=== PATIENT | male | born 1955 | race Caucasian/White ===

== ENCOUNTER 2022-08-02 16:04 | Observation (INO) | payer MEDICARE, BC ==
[2022-08-02 16:57] LABS: CHLORIDE,CL 100 mmol/L (98-107); SODIUM,NA 137 mmol/L (136-145)
[2022-08-02 16:58] LABS: ANION GAP 9.9 mmol/L (5-15); ESTIMATED GFR 73 mL/min (>=60)
[2022-08-02] MEDS ORDERED: HYDROmorphone 1 MG/ML Syringe IM ONE (17:08)
[2022-08-02] MEDS ORDERED: HYDROmorphone 1 MG/ML Syringe IV ONE (17:08)
[2022-08-02] MEDS ORDERED: cloNIDine 0.1 MG Tab PO ONE (17:12)
[2022-08-02] MEDS ORDERED: Ketorolac 30 MG/ML SDV IM ONE (19:20)
[2022-08-02] MEDS ORDERED: hydrALAZINE 20 MG/ML SDV IVPUSH ONE (19:20)
[2022-08-02] MEDS ORDERED: amLODIPine 10 MG Tab PO STA (21:49)
[2022-08-02] MEDS ORDERED: Ondansetron 4 MG/2 ML SDV IV PRN (23:34)
[2022-08-02] MEDS ORDERED: Ondansetron 4 MG Tab.DIS PO PRN (23:34)
[2022-08-03] MEDS ORDERED: Nitroglycerin 0.4 MG Tab.SL SL PRN (01:52)
[2022-08-03] MEDS ORDERED: Albuterol HFA 18 Gm Inhaler INH PRN (01:52)
[2022-08-03] MEDS ORDERED: Furosemide 20 MG Tab PO PRN (01:52)
[2022-08-03] MEDS ORDERED: Ergocalciferol (Vitamin D2) 1.25 MG Cap PO SCH (02:00)
[2022-08-03] MEDS: Acetaminophen/oxyCODONE 325-5 MG Tab PO PRN ×2 (02:16→10:11)
[2022-08-03] MEDS: HYDROmorphone 0.5 MG/0.5 ML Syringe IVPUSH PRN ×2 (03:27→11:12)
[2022-08-03 07:19] LABS: CHLORIDE,CL 99 mmol/L (98-107); SODIUM,NA 134 mmol/L (136-145)
[2022-08-03 07:20] LABS: ANION GAP 7.1 mmol/L (5-15); ESTIMATED GFR 81 mL/min (>=60)
[2022-08-03] MEDS ORDERED: Insulin Lispro 100 Units/ML 3 ML Vial SUBCUT SCH ×4 (07:30→18:00)
[2022-08-03] MEDS ORDERED: CLOPIDOGREL 75 MG PO SCH (09:00)
[2022-08-03] MEDS ORDERED: LISINOPRIL 2.5 MG PO SCH (09:00)
[2022-08-03] MEDS ORDERED: ISOSORBIDE MONONITRATE 120 MG PO SCH ×2 (09:00→09:15)
[2022-08-03] MEDS ORDERED: FERROUS SULFATE 325 MG PO SCH (09:00)
[2022-08-03] MEDS ORDERED: OMEPRAZOLE 20 MG PO SCH (09:00)
[2022-08-03] MEDS ORDERED: Cyanocobalamin (Vitamin B12) 1,000 MCG Tab PO SCH (09:00)
[2022-08-03] MEDS ORDERED: METOPROLOL TARTRATE 50 MG PO SCH (09:00)
[2022-08-03] MEDS ORDERED: BACLOFEN 10 MG PO SCH (09:00)
[2022-08-03] MEDS ORDERED: METFORMIN 500 MG PO SCH ×3 (09:00→10:00)
[2022-08-03] MEDS ORDERED: MULTIVITAMIN PO SCH (09:00)
[2022-08-03] MEDS ORDERED: Aspirin 81 MG Tab.EC PO SCH ×2 (09:00→09:15)
[2022-08-03] MEDS ORDERED: CYANOCOBALAMIN 500 MCG PO SCH (09:15)
[2022-08-03] MEDS ORDERED: Aspirin 81 MG Tab.EC (OWN SUPPLY) PO SCH (10:00)
[2022-08-03] MEDS ORDERED: Cyclobenzaprine 10 MG Tab PO PRN (11:53)
[2022-08-03 16:06] VITALS: BP 147/84; PULSE 76
[2022-08-03] MEDS ORDERED: GABAPENTIN 600 MG PO SCH (18:00)
[2022-08-03] MEDS ORDERED: IRON 65 MG PO SCH (18:00)
[2022-08-03] MEDS ORDERED: ROPINIROLE 0.25 MG PO SCH (19:00)
[2022-08-03] MEDS ORDERED: TAMSULOSIN 0.4 MG PO SCH (21:00)
[2022-08-03] MEDS ORDERED: NORTRIPTYLINE 25 MG PO SCH (21:00)
[2022-08-03] MEDS ORDERED: Primidone 50 MG Tab PO SCH (21:00)
[2022-08-03] MEDS ORDERED: Insulin Glarg,Human.Rec.Analog 100 Unit/ML SUBCUT SCH (21:00)
[2022-08-08] MEDS ORDERED: SEMAGLUTIDE 1 MG/0.75 ML SQ SCH (09:00)
== END 2022-08-03 15:50 | disposition home or self-care (01) ==
LOC: VM.ED 16:04 → VM.MS 22:32
PROVIDERS: ADMIT Physician Assistant Medical; ATTEND Physician Assistant Medical
DX: I16.0 Hypertensive urgency (principal); R10.2 Pelvic and perineal pain; E66.9 Obesity, unspecified; I25.119 Atherosclerotic heart disease of native coronary artery with unspecified angina pectoris; J45.909 Unspecified asthma, uncomplicated; G47.30 Sleep apnea, unspecified; E11.42 Type 2 diabetes mellitus with diabetic polyneuropathy; M16.11 Unilateral primary osteoarthritis, right hip; Z79.899 Other long term (current) drug therapy; Z79.84 Long term (current) use of oral hypoglycemic drugs; Z79.4 Long term (current) use of insulin; Z79.82 Long term (current) use of aspirin; Z98.890 Other specified postprocedural states; Z90.49 Acquired absence of other specified parts of digestive tract
CPT/HCPCS: 36415; 72192; 80048; 80053; 81001; 82550; 82947; 83735; 85025; 86140; 96372; 96374; 97161-GP; 99217; 99220; 99284-25; A9270-GY; J0360; J1170; J1815-GY; J1885; J3360

== ENCOUNTER 2023-01-14 13:37 | Emergency (ER) | payer MEDICARE, BC ==
[2023-01-14 14:01] LABS: BASOPHILS ABSOLUTE AUTO 0.1 x10^3/uL (0.0-0.2); BASOPHILS PERCENT AUTO 0.9 % (0.2-1.2); EOSINOPHILS ABSOLUTE AUTO 0.2 x10^3/uL (0.0-0.5); EOSINOPHILS PERCENT AUTO 2.8 % (0.0-4.0); HEMOGLOBIN 13.7 g/dL (14.0-18.0); IMMATURE GRAN ABSOLUTE AUTO 0.03 x10^3/uL (0.00-0.07); LYMPHOCYTES ABSOLUTE AUTO 3.1 x10^3/uL (1.0-4.8); LYMPHOCYTES PERCENT AUTO 37.8 % (25.0-50.0); MEAN CORPUSCULAR HEMOGLOBIN 29.7 pg (26.0-32.0); MEAN CORPUSCULAR HGB CONC 35.1 g/dL (32.0-36.0); MEAN CORPUSCULAR VOLUME 84.6 fL (78.0-93.0); MONOCYTES ABSOLUTE AUTO 0.5 x10^3/uL (0.0-0.8); MONOCYTES PERCENT AUTO 6.4 % (2.0-11.0); NEUTROPHILS ABSOLUTE AUTO 4.2 x10^3/uL (1.8-7.7); NEUTROPHILS PERCENT AUTO 51.7 % (50.0-80.0); PLATELET COUNT,PLT 180 x10^3/uL (130-400); RED BLOOD CELL COUNT 4.61 x10^6/uL (4.5-6.0); WHITE BLOOD CELL COUNT,WBC 8.2 x10^3/uL (4.0-10.0)
[2023-01-14 14:20] LABS: A/G RATIO 1.16; ALANINE AMINOTRANSFERASE,ALT 46 U/L (16-63); ALBUMIN 3.6 g/dL (3.4-5.0); ALKALINE PHOSPHATASE 64 U/L (46-116); ASPARTATE AMNIOTRANSFERASE,AST 33 U/L (15-37); BILIRUBIN TOTAL 0.3 mg/dL (0.2-1.0); BLOOD UREA NITROGEN,BUN 14 mg/dL (7-18); CALCIUM 8.7 mg/dL (8.5-10.1); CARBON DIOXIDE,CO2 27 mmol/L (21-32); CHLORIDE,CL 100 mmol/L (98-107); CREATINE KINASE,CK 193 U/L (39-308); GLUCOSE RANDOM 206 mg/dL (70-99); LACTATE DEHYDROGENASE,LDH 166 U/L (85-227); POTASSIUM,K 4.2 mmol/L (3.5-5.1); PROTEIN TOTAL,TP 6.7 g/dL (6.4-8.2); SODIUM,NA 137 mmol/L (136-145)
[2023-01-14 14:21] LABS: ANION GAP 14.2 mmol/L (5-15); C-REACTIVE PROTEIN < 0.2 mg/dL (<=0.9); ESTIMATED GFR 81 mL/min (>=60)
[2023-01-15 08:58] VITALS: BP 152/78; PULSE 80
== END 2023-01-14 14:40 | disposition home or self-care (01) ==
LOC: VM.ED 13:37
DX: R07.89 Other chest pain (principal); I25.10 Atherosclerotic heart disease of native coronary artery without angina pectoris; I11.0 Hypertensive heart disease with heart failure; I50.9 Heart failure, unspecified; J45.909 Unspecified asthma, uncomplicated; E11.42 Type 2 diabetes mellitus with diabetic polyneuropathy; E66.9 Obesity, unspecified; Z68.35 Body mass index [BMI] 35.0-35.9, adult; Z79.899 Other long term (current) drug therapy; Z79.4 Long term (current) use of insulin; Z79.82 Long term (current) use of aspirin; Z91.041 Radiographic dye allergy status
CPT/HCPCS: 71046; 80053; 82550; 83615; 83735; 84484; 85025; 86140; 93005; 93010; 99284; 99285

== ENCOUNTER 2023-05-06 14:56 | Inpatient (IN) | payer MEDICARE, BC ==
[2023-05-09] MEDS ORDERED: Glucose Gel 15 GM in 37.5 GM Tube PO ONE (16:06)
[2023-05-09] MEDS ORDERED: 50% Dextrose in Water 50 ML Syringe IVPUSH PRN (16:06)
[2023-05-09] MEDS ORDERED: Albuterol HFA 18 Gm Inhaler INH PRN (17:04)
[2023-05-09] MEDS ORDERED: Furosemide 20 MG Tab PO PRN (17:04)
[2023-05-09] MEDS ORDERED: Nitroglycerin 0.4 MG Tab.SL SL PRN (17:04)
[2023-05-09] MEDS: Insulin Lispro 100 Units/ML 3 ML Vial SUBCUT SCH (19:33)
[2023-05-09] MEDS: Baclofen 10 MG Tab PO SCH (21:39)
[2023-05-09] MEDS: rOPINIRole 0.5 MG Tab PO SCH (21:39)
[2023-05-09] MEDS: Multivitamin Tab PO SCH (21:39)
[2023-05-09] MEDS: Nortriptyline 25 MG Cap PO SCH (21:39)
[2023-05-09] MEDS: atorvaSTATin 10 MG Tab PO SCH (21:39)
[2023-05-09] MEDS: Gabapentin 400 MG Cap PO SCH (21:40)
[2023-05-09] MEDS: Primidone 50 MG Tab PO SCH (21:40)
[2023-05-09] MEDS: Metoprolol Tartrate 50 MG Tab PO SCH (21:51)
[2023-05-09] MEDS: Insulin Glarg,Human.Rec.Analog 100 Unit/ML 10 ML Vial SUBCUT SCH (21:52)
[2023-05-10] MEDS: Insulin Lispro 100 Units/ML 3 ML Vial SUBCUT SCH ×2 (08:21→18:31)
[2023-05-10] MEDS: Lisinopril 20 MG Tab PO SCH (08:45)
[2023-05-10] MEDS: Gabapentin 300 MG Cap PO SCH ×2 (08:45→15:38)
[2023-05-10] MEDS: Multivitamin Tab PO SCH ×2 (08:45→21:15)
[2023-05-10] MEDS: Ferrous Sulfate 325 MG Tab PO SCH (08:46)
[2023-05-10] MEDS: Clopidogrel 75 MG Tab PO SCH (08:46)
[2023-05-10] MEDS: Baclofen 10 MG Tab PO SCH ×2 (08:47→21:11)
[2023-05-10] MEDS: Metoprolol Tartrate 50 MG Tab PO SCH ×2 (08:47→21:09)
[2023-05-10] MEDS: Omeprazole 20 MG Cap.CR PO SCH (08:48)
[2023-05-10] MEDS: Finasteride 5 MG Tab PO SCH (08:48)
[2023-05-10] MEDS: Isosorbide Mononitrate 60 MG Tab.ER PO SCH (08:49)
[2023-05-10] MEDS: Cyanocobalamin (Vitamin B12) 250 MCG Tab PO SCH (08:50)
[2023-05-10] MEDS: Magnesium Oxide 400 MG Tab PO SCH (08:51)
[2023-05-10] MEDS: Aspirin 81 MG Tab.EC PO SCH (08:51)
[2023-05-10] MEDS ORDERED: Tamsulosin 0.4 MG Cap.ER PO SCH (09:00)
[2023-05-10] MEDS ORDERED: Semaglutide [Ozempic] 1 MG/0.75 ML Pen.Injctr SQ SCH (10:00)
[2023-05-10] MEDS ORDERED: Insulin Lispro 100 Units/ML 3 ML Vial SUBCUT SCH (11:00)
[2023-05-10] MEDS: metFORMIN 500 MG Tab PO SCH ×2 (17:39→17:42)
[2023-05-10] MEDS: Gabapentin 400 MG Cap PO SCH (21:09)
[2023-05-10] MEDS: Nortriptyline 25 MG Cap PO SCH (21:09)
[2023-05-10] MEDS: Primidone 50 MG Tab PO SCH (21:10)
[2023-05-10] MEDS: atorvaSTATin 10 MG Tab PO SCH (21:11)
[2023-05-10] MEDS: rOPINIRole 0.5 MG Tab PO SCH (21:12)
[2023-05-10] MEDS: Insulin Glarg,Human.Rec.Analog 100 Unit/ML 10 ML Vial SUBCUT SCH (21:26)
[2023-05-11 07:14] LABS: A/G RATIO 0.84; ALBUMIN 2.7 g/dL (3.4-5.0); BILIRUBIN DIRECT 0.14 mg/dL (0.00-0.20); BILIRUBIN INDIRECT 0.26; BILIRUBIN TOTAL 0.4 mg/dL (0.2-1.0); CALCIUM 8.3 mg/dL (8.5-10.1); CREATININE 0.8 mg/dL (0.70-1.30); EST CRCL DRUG DOSING (CG) 101.32 mL/min; PHOSPHORUS 3.8 mg/dL (2.6-4.7); PROTEIN TOTAL,TP 5.9 g/dL (6.4-8.2)
[2023-05-11 07:15] LABS: POTASSIUM,K 2.9 mmol/L (3.5-5.1)
[2023-05-11] MEDS: metFORMIN 500 MG Tab PO SCH ×2 (08:49→18:22)
[2023-05-11] MEDS: Gabapentin 300 MG Cap PO SCH ×2 (08:50→13:48)
[2023-05-11] MEDS: Cyanocobalamin (Vitamin B12) 250 MCG Tab PO SCH (08:51)
[2023-05-11] MEDS: Omeprazole 20 MG Cap.CR PO SCH (08:52)
[2023-05-11] MEDS: Baclofen 10 MG Tab PO SCH ×2 (08:52→21:43)
[2023-05-11] MEDS: Magnesium Oxide 400 MG Tab PO SCH (08:53)
[2023-05-11] MEDS: Aspirin 81 MG Tab.EC PO SCH (08:53)
[2023-05-11] MEDS: Multivitamin Tab PO SCH ×2 (08:53→21:44)
[2023-05-11] MEDS: Tamsulosin 0.4 MG Cap.ER PO SCH (08:54)
[2023-05-11] MEDS: Isosorbide Mononitrate 60 MG Tab.ER PO SCH (08:55)
[2023-05-11] MEDS: Ferrous Sulfate 325 MG Tab PO SCH (08:55)
[2023-05-11] MEDS: Finasteride 5 MG Tab PO SCH (08:55)
[2023-05-11] MEDS: Lisinopril 20 MG Tab PO SCH (08:56)
[2023-05-11] MEDS: Clopidogrel 75 MG Tab PO SCH (08:57)
[2023-05-11] MEDS: Metoprolol Tartrate 50 MG Tab PO SCH ×2 (08:58→21:44)
[2023-05-11] MEDS: Insulin Lispro 100 Units/ML 3 ML Vial SUBCUT SCH ×4 (09:01→19:10)
[2023-05-11] MEDS: Potassium Chloride 10 MEQ Tab.ER PO SCH ×2 (09:34→18:21)
[2023-05-11] MEDS: rOPINIRole 0.5 MG Tab PO SCH (21:43)
[2023-05-11] MEDS: Primidone 50 MG Tab PO SCH (21:43)
[2023-05-11] MEDS: atorvaSTATin 10 MG Tab PO SCH (21:43)
[2023-05-11] MEDS: Nortriptyline 25 MG Cap PO SCH (21:43)
[2023-05-11] MEDS: Gabapentin 400 MG Cap PO SCH (21:43)
[2023-05-11] MEDS: Insulin Glarg,Human.Rec.Analog 100 Unit/ML 10 ML Vial SUBCUT SCH (23:08)
[2023-05-12 07:11] LABS: BASOPHILS ABSOLUTE AUTO 0.1 x10^3/uL (0.0-0.2); BASOPHILS PERCENT AUTO 0.7 % (0.2-1.2); EOSINOPHILS ABSOLUTE AUTO 0.3 x10^3/uL (0.0-0.5); EOSINOPHILS PERCENT AUTO 3.3 % (0.0-4.0); HEMOGLOBIN 12.4 g/dL (14.0-18.0); IMMATURE GRAN ABSOLUTE AUTO 0.13 x10^3/uL (0.00-0.07); LYMPHOCYTES ABSOLUTE AUTO 2.3 x10^3/uL (1.0-4.8); LYMPHOCYTES PERCENT AUTO 27.6 % (25.0-50.0); MEAN CORPUSCULAR HGB CONC 34.4 g/dL (32.0-36.0); MEAN CORPUSCULAR VOLUME 84.1 fL (78.0-93.0); MONOCYTES ABSOLUTE AUTO 0.7 x10^3/uL (0.0-0.8); MONOCYTES PERCENT AUTO 8.4 % (2.0-11.0); NEUTROPHILS ABSOLUTE AUTO 4.8 x10^3/uL (1.8-7.7); NEUTROPHILS PERCENT AUTO 58.4 % (50.0-80.0); PLATELET COUNT,PLT 245 x10^3/uL (130-400); RED BLOOD CELL COUNT 4.28 x10^6/uL (4.5-6.0); WHITE BLOOD CELL COUNT,WBC 8.2 x10^3/uL (4.0-10.0)
[2023-05-12 07:26] LABS: CALCIUM 8.2 mg/dL (8.5-10.1); CREATININE 0.8 mg/dL (0.70-1.30); EST CRCL DRUG DOSING (CG) 101.32 mL/min; POTASSIUM,K 3.3 mmol/L (3.5-5.1)
[2023-05-12 07:27] LABS: ANION GAP 12.3 mmol/L (5-15)
[2023-05-12] MEDS: metFORMIN 500 MG Tab PO SCH ×2 (08:49→18:09)
[2023-05-12] MEDS: Potassium Chloride 10 MEQ Tab.ER PO SCH ×2 (08:50→09:07)
[2023-05-12] MEDS: Tamsulosin 0.4 MG Cap.ER PO SCH (08:52)
[2023-05-12] MEDS: Magnesium Oxide 400 MG Tab PO SCH (08:52)
[2023-05-12] MEDS: Baclofen 10 MG Tab PO SCH ×2 (08:54→21:12)
[2023-05-12] MEDS: Omeprazole 20 MG Cap.CR PO SCH (08:54)
[2023-05-12] MEDS: Ferrous Sulfate 325 MG Tab PO SCH (08:54)
[2023-05-12] MEDS: Metoprolol Tartrate 50 MG Tab PO SCH ×2 (08:55→21:11)
[2023-05-12] MEDS: Isosorbide Mononitrate 60 MG Tab.ER PO SCH (08:56)
[2023-05-12] MEDS: Cyanocobalamin (Vitamin B12) 250 MCG Tab PO SCH (08:56)
[2023-05-12] MEDS: Multivitamin Tab PO SCH ×2 (08:57→21:12)
[2023-05-12] MEDS: Gabapentin 300 MG Cap PO SCH ×2 (08:57→14:06)
[2023-05-12] MEDS: Aspirin 81 MG Tab.EC PO SCH (08:58)
[2023-05-12] MEDS: Clopidogrel 75 MG Tab PO SCH (08:58)
[2023-05-12] MEDS: Finasteride 5 MG Tab PO SCH (08:58)
[2023-05-12] MEDS: Lisinopril 20 MG Tab PO SCH (08:59)
[2023-05-12] MEDS: Insulin Lispro 100 Units/ML 3 ML Vial SUBCUT SCH ×3 (09:03→18:11)
[2023-05-12] MEDS: rOPINIRole 0.5 MG Tab PO SCH (21:11)
[2023-05-12] MEDS: Gabapentin 400 MG Cap PO SCH (21:11)
[2023-05-12] MEDS: Primidone 50 MG Tab PO SCH (21:12)
[2023-05-12] MEDS: Nortriptyline 25 MG Cap PO SCH (21:12)
[2023-05-12] MEDS: Insulin Glarg,Human.Rec.Analog 100 Unit/ML 10 ML Vial SUBCUT SCH (21:12)
[2023-05-12] MEDS: atorvaSTATin 10 MG Tab PO SCH (21:12)
[2023-05-13] MEDS: Gabapentin 300 MG Cap PO SCH ×2 (08:24→14:46)
[2023-05-13] MEDS: Tamsulosin 0.4 MG Cap.ER PO SCH (08:24)
[2023-05-13] MEDS: Potassium Chloride 10 MEQ Tab.ER PO SCH (08:25)
[2023-05-13] MEDS: Isosorbide Mononitrate 60 MG Tab.ER PO SCH (08:27)
[2023-05-13] MEDS: Magnesium Oxide 400 MG Tab PO SCH (08:28)
[2023-05-13] MEDS: Finasteride 5 MG Tab PO SCH (08:28)
[2023-05-13] MEDS: Multivitamin Tab PO SCH ×2 (08:28→20:05)
[2023-05-13] MEDS: Ferrous Sulfate 325 MG Tab PO SCH (08:28)
[2023-05-13] MEDS: metFORMIN 500 MG Tab PO SCH ×2 (08:28→18:48)
[2023-05-13] MEDS: Metoprolol Tartrate 50 MG Tab PO SCH ×2 (08:28→20:06)
[2023-05-13] MEDS: Aspirin 81 MG Tab.EC PO SCH (08:28)
[2023-05-13] MEDS: Lisinopril 20 MG Tab PO SCH (08:28)
[2023-05-13] MEDS: Omeprazole 20 MG Cap.CR PO SCH (08:29)
[2023-05-13] MEDS: Clopidogrel 75 MG Tab PO SCH (08:29)
[2023-05-13] MEDS: Baclofen 10 MG Tab PO SCH ×2 (08:29→20:05)
[2023-05-13] MEDS: Cyanocobalamin (Vitamin B12) 250 MCG Tab PO SCH (08:29)
[2023-05-13] MEDS: Insulin Lispro 100 Units/ML 3 ML Vial SUBCUT SCH ×3 (08:33→18:48)
[2023-05-13] MEDS: Gabapentin 400 MG Cap PO SCH (20:04)
[2023-05-13] MEDS: Primidone 50 MG Tab PO SCH (20:04)
[2023-05-13] MEDS: atorvaSTATin 10 MG Tab PO SCH (20:05)
[2023-05-13] MEDS: Nortriptyline 25 MG Cap PO SCH (20:05)
[2023-05-13] MEDS: rOPINIRole 0.5 MG Tab PO SCH (20:05)
[2023-05-13] MEDS: Insulin Glarg,Human.Rec.Analog 100 Unit/ML 10 ML Vial SUBCUT SCH (20:15)
[2023-05-14] MEDS: Potassium Chloride 10 MEQ Tab.ER PO SCH (08:27)
[2023-05-14] MEDS: Ferrous Sulfate 325 MG Tab PO SCH (08:28)
[2023-05-14] MEDS: Lisinopril 20 MG Tab PO SCH (08:28)
[2023-05-14] MEDS: Multivitamin Tab PO SCH ×2 (08:28→20:55)
[2023-05-14] MEDS: Clopidogrel 75 MG Tab PO SCH (08:28)
[2023-05-14] MEDS: Baclofen 10 MG Tab PO SCH ×2 (08:29→20:38)
[2023-05-14] MEDS: Metoprolol Tartrate 50 MG Tab PO SCH ×2 (08:29→20:36)
[2023-05-14] MEDS: Isosorbide Mononitrate 60 MG Tab.ER PO SCH (08:29)
[2023-05-14] MEDS: Finasteride 5 MG Tab PO SCH (08:29)
[2023-05-14] MEDS: Cyanocobalamin (Vitamin B12) 250 MCG Tab PO SCH (08:29)
[2023-05-14] MEDS: Magnesium Oxide 400 MG Tab PO SCH (08:30)
[2023-05-14] MEDS: Omeprazole 20 MG Cap.CR PO SCH (08:30)
[2023-05-14] MEDS: Tamsulosin 0.4 MG Cap.ER PO SCH (08:30)
[2023-05-14] MEDS: metFORMIN 500 MG Tab PO SCH ×2 (08:30→18:22)
[2023-05-14] MEDS: Aspirin 81 MG Tab.EC PO SCH (08:30)
[2023-05-14] MEDS: Gabapentin 300 MG Cap PO SCH ×2 (08:30→14:57)
[2023-05-14] MEDS: Insulin Lispro 100 Units/ML 3 ML Vial SUBCUT SCH ×3 (08:31→18:22)
[2023-05-14] MEDS: rOPINIRole 0.5 MG Tab PO SCH (20:36)
[2023-05-14] MEDS: Gabapentin 400 MG Cap PO SCH (20:36)
[2023-05-14] MEDS: Primidone 50 MG Tab PO SCH (20:36)
[2023-05-14] MEDS: Nortriptyline 25 MG Cap PO SCH (20:37)
[2023-05-14] MEDS: atorvaSTATin 10 MG Tab PO SCH (20:38)
[2023-05-14] MEDS: Insulin Glarg,Human.Rec.Analog 100 Unit/ML 10 ML Vial SUBCUT SCH (20:55)
[2023-05-15] MEDS: Potassium Chloride 10 MEQ Tab.ER PO SCH (08:23)
[2023-05-15] MEDS: Baclofen 10 MG Tab PO SCH ×2 (08:23→21:49)
[2023-05-15] MEDS: Aspirin 81 MG Tab.EC PO SCH (08:23)
[2023-05-15] MEDS: Finasteride 5 MG Tab PO SCH (08:23)
[2023-05-15] MEDS: Isosorbide Mononitrate 60 MG Tab.ER PO SCH (08:24)
[2023-05-15] MEDS: Cyanocobalamin (Vitamin B12) 250 MCG Tab PO SCH (08:24)
[2023-05-15] MEDS: Magnesium Oxide 400 MG Tab PO SCH (08:24)
[2023-05-15] MEDS: Clopidogrel 75 MG Tab PO SCH (08:24)
[2023-05-15] MEDS: metFORMIN 500 MG Tab PO SCH ×2 (08:24→18:10)
[2023-05-15] MEDS: Multivitamin Tab PO SCH ×2 (08:25→21:49)
[2023-05-15] MEDS: Omeprazole 20 MG Cap.CR PO SCH (08:25)
[2023-05-15] MEDS: Ferrous Sulfate 325 MG Tab PO SCH (08:25)
[2023-05-15] MEDS: Tamsulosin 0.4 MG Cap.ER PO SCH (08:25)
[2023-05-15] MEDS: Gabapentin 300 MG Cap PO SCH ×2 (08:25→13:23)
[2023-05-15] MEDS: Insulin Lispro 100 Units/ML 3 ML Vial SUBCUT SCH ×3 (08:26→18:10)
[2023-05-15] MEDS: Metoprolol Tartrate 50 MG Tab PO SCH ×2 (08:29→21:56)
[2023-05-15] MEDS: Lisinopril 20 MG Tab PO SCH (08:29)
[2023-05-15] MEDS: rOPINIRole 0.5 MG Tab PO SCH (21:47)
[2023-05-15] MEDS: Primidone 50 MG Tab PO SCH (21:50)
[2023-05-15] MEDS: atorvaSTATin 10 MG Tab PO SCH (21:50)
[2023-05-15] MEDS: Gabapentin 400 MG Cap PO SCH (21:56)
[2023-05-15] MEDS: Nortriptyline 25 MG Cap PO SCH (21:57)
[2023-05-15] MEDS: Insulin Glarg,Human.Rec.Analog 100 Unit/ML 10 ML Vial SUBCUT SCH (21:59)
[2023-05-16 07:04] LABS: BASOPHILS ABSOLUTE AUTO 0.1 x10^3/uL (0.0-0.2); BASOPHILS PERCENT AUTO 1.3 % (0.2-1.2); EOSINOPHILS ABSOLUTE AUTO 0.3 x10^3/uL (0.0-0.5); EOSINOPHILS PERCENT AUTO 4.2 % (0.0-4.0); IMMATURE GRAN ABSOLUTE AUTO 0.05 x10^3/uL (0.00-0.07); LYMPHOCYTES ABSOLUTE AUTO 2.3 x10^3/uL (1.0-4.8); LYMPHOCYTES PERCENT AUTO 29.4 % (25.0-50.0); MEAN CORPUSCULAR HGB CONC 35.1 g/dL (32.0-36.0); MEAN CORPUSCULAR VOLUME 85.3 fL (78.0-93.0); MONOCYTES ABSOLUTE AUTO 0.6 x10^3/uL (0.0-0.8); MONOCYTES PERCENT AUTO 7.4 % (2.0-11.0); NEUTROPHILS ABSOLUTE AUTO 4.4 x10^3/uL (1.8-7.7); PLATELET COUNT,PLT 205 x10^3/uL (130-400); RED BLOOD CELL COUNT 4.34 x10^6/uL (4.5-6.0); WHITE BLOOD CELL COUNT,WBC 7.7 x10^3/uL (4.0-10.0)
[2023-05-16 07:24] LABS: ALBUMIN 2.8 g/dL (3.4-5.0); CALCIUM 8.4 mg/dL (8.5-10.1); CREATININE 0.9 mg/dL (0.70-1.30); EST CRCL DRUG DOSING (CG) 90.06 mL/min; PHOSPHORUS 3.3 mg/dL (2.6-4.7); POTASSIUM,K 4.2 mmol/L (3.5-5.1)
[2023-05-16] MEDS: Insulin Lispro 100 Units/ML 3 ML Vial SUBCUT SCH ×3 (08:07→17:41)
[2023-05-16] MEDS: metFORMIN 500 MG Tab PO SCH ×2 (08:08→17:40)
[2023-05-16] MEDS: Omeprazole 20 MG Cap.CR PO SCH (08:09)
[2023-05-16] MEDS: Baclofen 10 MG Tab PO SCH ×2 (08:09→20:59)
[2023-05-16] MEDS: Tamsulosin 0.4 MG Cap.ER PO SCH (08:09)
[2023-05-16] MEDS: Isosorbide Mononitrate 60 MG Tab.ER PO SCH (08:09)
[2023-05-16] MEDS: Gabapentin 300 MG Cap PO SCH ×2 (08:10→14:21)
[2023-05-16] MEDS: Aspirin 81 MG Tab.EC PO SCH (08:10)
[2023-05-16] MEDS: Multivitamin Tab PO SCH ×2 (08:10→20:59)
[2023-05-16] MEDS: Metoprolol Tartrate 50 MG Tab PO SCH ×2 (08:10→21:00)
[2023-05-16] MEDS: Potassium Chloride 10 MEQ Tab.ER PO SCH (08:10)
[2023-05-16] MEDS: Lisinopril 20 MG Tab PO SCH (08:10)
[2023-05-16] MEDS: Finasteride 5 MG Tab PO SCH (08:11)
[2023-05-16] MEDS: Ferrous Sulfate 325 MG Tab PO SCH (08:11)
[2023-05-16] MEDS: Clopidogrel 75 MG Tab PO SCH (08:11)
[2023-05-16] MEDS: Magnesium Oxide 400 MG Tab PO SCH (08:11)
[2023-05-16] MEDS: Cyanocobalamin (Vitamin B12) 250 MCG Tab PO SCH (08:11)
[2023-05-16] MEDS ORDERED: Insulin Glarg,Human.Rec.Analog 100 Unit/ML 10 ML Vial SUBCUT SCH (15:00)
[2023-05-16] MEDS: rOPINIRole 0.5 MG Tab PO SCH (20:58)
[2023-05-16] MEDS: Gabapentin 400 MG Cap PO SCH (20:58)
[2023-05-16] MEDS: Nortriptyline 25 MG Cap PO SCH (20:58)
[2023-05-16] MEDS: atorvaSTATin 10 MG Tab PO SCH (20:59)
[2023-05-16] MEDS: Primidone 50 MG Tab PO SCH (20:59)
[2023-05-16] MEDS: Insulin Glarg,Human.Rec.Analog 100 Unit/ML 10 ML Vial SUBCUT SCH (21:01)
[2023-05-17] MEDS: Gabapentin 300 MG Cap PO SCH ×2 (09:12→14:15)
[2023-05-17] MEDS: Isosorbide Mononitrate 60 MG Tab.ER PO SCH (09:12)
[2023-05-17] MEDS: Omeprazole 20 MG Cap.CR PO SCH (09:12)
[2023-05-17] MEDS: Multivitamin Tab PO SCH ×2 (09:13→21:46)
[2023-05-17] MEDS: Tamsulosin 0.4 MG Cap.ER PO SCH (09:13)
[2023-05-17] MEDS: Clopidogrel 75 MG Tab PO SCH (09:13)
[2023-05-17] MEDS: Ferrous Sulfate 325 MG Tab PO SCH (09:14)
[2023-05-17] MEDS: Cyanocobalamin (Vitamin B12) 250 MCG Tab PO SCH (09:14)
[2023-05-17] MEDS: Lisinopril 20 MG Tab PO SCH (09:14)
[2023-05-17] MEDS: Aspirin 81 MG Tab.EC PO SCH (09:14)
[2023-05-17] MEDS: Finasteride 5 MG Tab PO SCH (09:15)
[2023-05-17] MEDS: Potassium Chloride 10 MEQ Tab.ER PO SCH (09:15)
[2023-05-17] MEDS: metFORMIN 500 MG Tab PO SCH ×2 (09:15→18:00)
[2023-05-17] MEDS: Metoprolol Tartrate 50 MG Tab PO SCH ×2 (09:16→21:47)
[2023-05-17] MEDS: Baclofen 10 MG Tab PO SCH ×2 (09:16→21:47)
[2023-05-17] MEDS: Magnesium Oxide 400 MG Tab PO SCH (09:17)
[2023-05-17] MEDS: Insulin Lispro 100 Units/ML 3 ML Vial SUBCUT SCH ×3 (09:36→18:01)
[2023-05-17] MEDS: Primidone 50 MG Tab PO SCH (21:46)
[2023-05-17] MEDS: Gabapentin 400 MG Cap PO SCH (21:46)
[2023-05-17] MEDS: atorvaSTATin 10 MG Tab PO SCH (21:46)
[2023-05-17] MEDS: rOPINIRole 0.5 MG Tab PO SCH (21:47)
[2023-05-17] MEDS: Nortriptyline 25 MG Cap PO SCH (21:47)
[2023-05-17] MEDS: Insulin Glarg,Human.Rec.Analog 100 Unit/ML 10 ML Vial SUBCUT SCH (21:49)
[2023-05-18] MEDS: Insulin Lispro 100 Units/ML 3 ML Vial SUBCUT SCH ×3 (09:46→17:56)
[2023-05-18] MEDS: Isosorbide Mononitrate 60 MG Tab.ER PO SCH (09:47)
[2023-05-18] MEDS: Aspirin 81 MG Tab.EC PO SCH (09:48)
[2023-05-18] MEDS: Gabapentin 300 MG Cap PO SCH ×2 (09:48→13:31)
[2023-05-18] MEDS: Magnesium Oxide 400 MG Tab PO SCH (09:49)
[2023-05-18] MEDS: Ferrous Sulfate 325 MG Tab PO SCH (09:49)
[2023-05-18] MEDS: Omeprazole 20 MG Cap.CR PO SCH (09:49)
[2023-05-18] MEDS: Potassium Chloride 10 MEQ Tab.ER PO SCH (09:49)
[2023-05-18] MEDS: metFORMIN 500 MG Tab PO SCH ×2 (09:50→17:56)
[2023-05-18] MEDS: Multivitamin Tab PO SCH ×2 (09:50→22:00)
[2023-05-18] MEDS: Cyanocobalamin (Vitamin B12) 250 MCG Tab PO SCH (09:51)
[2023-05-18] MEDS: Lisinopril 20 MG Tab PO SCH (09:52)
[2023-05-18] MEDS: Baclofen 10 MG Tab PO SCH ×2 (09:52→22:00)
[2023-05-18] MEDS: Tamsulosin 0.4 MG Cap.ER PO SCH (09:52)
[2023-05-18] MEDS: Clopidogrel 75 MG Tab PO SCH (09:53)
[2023-05-18] MEDS: Metoprolol Tartrate 50 MG Tab PO SCH ×2 (09:54→22:02)
[2023-05-18] MEDS: Finasteride 5 MG Tab PO SCH (09:55)
[2023-05-18] MEDS: Primidone 50 MG Tab PO SCH (21:58)
[2023-05-18] MEDS: atorvaSTATin 10 MG Tab PO SCH (21:59)
[2023-05-18] MEDS: rOPINIRole 0.5 MG Tab PO SCH (21:59)
[2023-05-18] MEDS: Gabapentin 400 MG Cap PO SCH (22:00)
[2023-05-18] MEDS: Insulin Glarg,Human.Rec.Analog 100 Unit/ML 10 ML Vial SUBCUT SCH (22:01)
[2023-05-18] MEDS: Nortriptyline 25 MG Cap PO SCH (22:12)
[2023-05-19] MEDS: metFORMIN 500 MG Tab PO SCH ×2 (09:00→17:51)
[2023-05-19] MEDS: Insulin Lispro 100 Units/ML 3 ML Vial SUBCUT SCH ×3 (09:26→17:49)
[2023-05-19] MEDS: Clopidogrel 75 MG Tab PO SCH (09:27)
[2023-05-19] MEDS: Isosorbide Mononitrate 60 MG Tab.ER PO SCH (09:27)
[2023-05-19] MEDS: Potassium Chloride 10 MEQ Tab.ER PO SCH (09:28)
[2023-05-19] MEDS: Cyanocobalamin (Vitamin B12) 250 MCG Tab PO SCH (09:28)
[2023-05-19] MEDS: Gabapentin 300 MG Cap PO SCH ×2 (09:29→14:38)
[2023-05-19] MEDS: Omeprazole 20 MG Cap.CR PO SCH (09:29)
[2023-05-19] MEDS: Ferrous Sulfate 325 MG Tab PO SCH (09:30)
[2023-05-19] MEDS: Multivitamin Tab PO SCH ×2 (09:30→21:32)
[2023-05-19] MEDS: Metoprolol Tartrate 50 MG Tab PO SCH ×2 (09:31→21:31)
[2023-05-19] MEDS: Magnesium Oxide 400 MG Tab PO SCH (09:31)
[2023-05-19] MEDS: Lisinopril 20 MG Tab PO SCH (09:32)
[2023-05-19] MEDS: Tamsulosin 0.4 MG Cap.ER PO SCH (09:32)
[2023-05-19] MEDS: Finasteride 5 MG Tab PO SCH (09:33)
[2023-05-19] MEDS: Baclofen 10 MG Tab PO SCH ×2 (09:33→21:33)
[2023-05-19] MEDS: Aspirin 81 MG Tab.EC PO SCH (09:34)
[2023-05-19] MEDS: Gabapentin 400 MG Cap PO SCH (21:31)
[2023-05-19] MEDS: Primidone 50 MG Tab PO SCH (21:31)
[2023-05-19] MEDS: rOPINIRole 0.5 MG Tab PO SCH (21:32)
[2023-05-19] MEDS: atorvaSTATin 10 MG Tab PO SCH (21:32)
[2023-05-19] MEDS: Nortriptyline 25 MG Cap PO SCH (21:32)
[2023-05-19] MEDS: Insulin Glarg,Human.Rec.Analog 100 Unit/ML 10 ML Vial SUBCUT SCH (21:41)
[2023-05-20] MEDS: Cyanocobalamin (Vitamin B12) 250 MCG Tab PO SCH (08:14)
[2023-05-20] MEDS: Aspirin 81 MG Tab.EC PO SCH (08:15)
[2023-05-20] MEDS: Isosorbide Mononitrate 60 MG Tab.ER PO SCH (08:15)
[2023-05-20] MEDS: Potassium Chloride 10 MEQ Tab.ER PO SCH (08:16)
[2023-05-20] MEDS: Magnesium Oxide 400 MG Tab PO SCH (08:16)
[2023-05-20] MEDS: Gabapentin 300 MG Cap PO SCH ×2 (08:16→13:54)
[2023-05-20] MEDS: Omeprazole 20 MG Cap.CR PO SCH (08:16)
[2023-05-20] MEDS: Finasteride 5 MG Tab PO SCH (08:16)
[2023-05-20] MEDS: Clopidogrel 75 MG Tab PO SCH (08:16)
[2023-05-20] MEDS: Multivitamin Tab PO SCH ×2 (08:16→20:14)
[2023-05-20] MEDS: Tamsulosin 0.4 MG Cap.ER PO SCH (08:16)
[2023-05-20] MEDS: Baclofen 10 MG Tab PO SCH ×2 (08:16→20:14)
[2023-05-20] MEDS: Ferrous Sulfate 325 MG Tab PO SCH (08:16)
[2023-05-20] MEDS: Insulin Lispro 100 Units/ML 3 ML Vial SUBCUT SCH ×3 (08:17→18:55)
[2023-05-20] MEDS: metFORMIN 500 MG Tab PO SCH ×2 (08:20→18:54)
[2023-05-20] MEDS: Lisinopril 20 MG Tab PO SCH (08:21)
[2023-05-20] MEDS: Metoprolol Tartrate 50 MG Tab PO SCH ×2 (08:21→20:13)
[2023-05-20] MEDS: Gabapentin 400 MG Cap PO SCH (20:10)
[2023-05-20] MEDS: Primidone 50 MG Tab PO SCH (20:11)
[2023-05-20] MEDS: rOPINIRole 0.5 MG Tab PO SCH (20:13)
[2023-05-20] MEDS: atorvaSTATin 10 MG Tab PO SCH (20:13)
[2023-05-20] MEDS: Nortriptyline 25 MG Cap PO SCH (20:14)
[2023-05-20] MEDS: Insulin Glarg,Human.Rec.Analog 100 Unit/ML 10 ML Vial SUBCUT SCH (20:16)
[2023-05-21] MEDS: Magnesium Oxide 400 MG Tab PO SCH (08:40)
[2023-05-21] MEDS: Baclofen 10 MG Tab PO SCH ×2 (08:40→20:50)
[2023-05-21] MEDS: Isosorbide Mononitrate 60 MG Tab.ER PO SCH (08:40)
[2023-05-21] MEDS: Aspirin 81 MG Tab.EC PO SCH (08:40)
[2023-05-21] MEDS: Ferrous Sulfate 325 MG Tab PO SCH (08:41)
[2023-05-21] MEDS: Cyanocobalamin (Vitamin B12) 250 MCG Tab PO SCH (08:41)
[2023-05-21] MEDS: Metoprolol Tartrate 50 MG Tab PO SCH ×2 (08:41→20:50)
[2023-05-21] MEDS: Tamsulosin 0.4 MG Cap.ER PO SCH (08:41)
[2023-05-21] MEDS: Potassium Chloride 10 MEQ Tab.ER PO SCH (08:41)
[2023-05-21] MEDS: Gabapentin 300 MG Cap PO SCH ×2 (08:41→13:36)
[2023-05-21] MEDS: Omeprazole 20 MG Cap.CR PO SCH (08:42)
[2023-05-21] MEDS: Clopidogrel 75 MG Tab PO SCH (08:42)
[2023-05-21] MEDS: Multivitamin Tab PO SCH ×2 (08:42→20:51)
[2023-05-21] MEDS: Lisinopril 20 MG Tab PO SCH (08:42)
[2023-05-21] MEDS: Finasteride 5 MG Tab PO SCH (08:42)
[2023-05-21] MEDS: metFORMIN 500 MG Tab PO SCH ×2 (08:43→18:52)
[2023-05-21] MEDS: Insulin Lispro 100 Units/ML 3 ML Vial SUBCUT SCH ×3 (08:44→18:53)
[2023-05-21] MEDS: Gabapentin 400 MG Cap PO SCH (20:48)
[2023-05-21] MEDS: atorvaSTATin 10 MG Tab PO SCH (20:48)
[2023-05-21] MEDS: Nortriptyline 25 MG Cap PO SCH (20:48)
[2023-05-21] MEDS: rOPINIRole 0.5 MG Tab PO SCH (20:49)
[2023-05-21] MEDS: Primidone 50 MG Tab PO SCH (20:49)
[2023-05-21] MEDS: Insulin Glarg,Human.Rec.Analog 100 Unit/ML 10 ML Vial SUBCUT SCH (20:52)
[2023-05-22] MEDS: metFORMIN 500 MG Tab PO SCH ×2 (08:01→18:12)
[2023-05-22] MEDS: Insulin Lispro 100 Units/ML 3 ML Vial SUBCUT SCH ×3 (08:03→18:11)
[2023-05-22] MEDS: Multivitamin Tab PO SCH ×2 (08:58→21:48)
[2023-05-22] MEDS: Potassium Chloride 10 MEQ Tab.ER PO SCH (08:58)
[2023-05-22] MEDS: Cyanocobalamin (Vitamin B12) 250 MCG Tab PO SCH (08:58)
[2023-05-22] MEDS: Omeprazole 20 MG Cap.CR PO SCH (08:58)
[2023-05-22] MEDS: Clopidogrel 75 MG Tab PO SCH (08:58)
[2023-05-22] MEDS: Ferrous Sulfate 325 MG Tab PO SCH (08:58)
[2023-05-22] MEDS: Tamsulosin 0.4 MG Cap.ER PO SCH (08:59)
[2023-05-22] MEDS: Finasteride 5 MG Tab PO SCH (08:59)
[2023-05-22] MEDS: Magnesium Oxide 400 MG Tab PO SCH (08:59)
[2023-05-22] MEDS: Gabapentin 300 MG Cap PO SCH ×2 (08:59→14:11)
[2023-05-22] MEDS: Aspirin 81 MG Tab.EC PO SCH (08:59)
[2023-05-22] MEDS: Baclofen 10 MG Tab PO SCH ×2 (08:59→21:48)
[2023-05-22] MEDS: Isosorbide Mononitrate 60 MG Tab.ER PO SCH (08:59)
[2023-05-22] MEDS: Metoprolol Tartrate 50 MG Tab PO SCH ×2 (09:00→21:48)
[2023-05-22] MEDS: Lisinopril 20 MG Tab PO SCH (09:00)
[2023-05-22] MEDS: Primidone 50 MG Tab PO SCH (21:47)
[2023-05-22] MEDS: rOPINIRole 0.5 MG Tab PO SCH (21:48)
[2023-05-22] MEDS: Nortriptyline 25 MG Cap PO SCH (21:48)
[2023-05-22] MEDS: Gabapentin 400 MG Cap PO SCH (21:48)
[2023-05-22] MEDS: atorvaSTATin 10 MG Tab PO SCH (21:48)
[2023-05-22] MEDS: Insulin Glarg,Human.Rec.Analog 100 Unit/ML 10 ML Vial SUBCUT SCH (22:11)
[2023-05-23 06:53] LABS: BASOPHILS ABSOLUTE AUTO 0.1 x10^3/uL (0.0-0.2); BASOPHILS PERCENT AUTO 0.8 % (0.2-1.2); EOSINOPHILS ABSOLUTE AUTO 0.6 x10^3/uL (0.0-0.5); HEMATOCRIT 38.8 % (40.0-52.0); IMMATURE GRAN ABSOLUTE AUTO 0.06 x10^3/uL (0.00-0.07); LYMPHOCYTES ABSOLUTE AUTO 2.7 x10^3/uL (1.0-4.8); LYMPHOCYTES PERCENT AUTO 35.9 % (25.0-50.0); MEAN CORPUSCULAR HEMOGLOBIN 29.2 pg (26.0-32.0); MEAN CORPUSCULAR HGB CONC 33.5 g/dL (32.0-36.0); MEAN CORPUSCULAR VOLUME 87.2 fL (78.0-93.0); MONOCYTES ABSOLUTE AUTO 0.7 x10^3/uL (0.0-0.8); MONOCYTES PERCENT AUTO 8.7 % (2.0-11.0); NEUTROPHILS ABSOLUTE AUTO 3.5 x10^3/uL (1.8-7.7); NEUTROPHILS PERCENT AUTO 45.8 % (50.0-80.0); PLATELET COUNT,PLT 162 x10^3/uL (130-400); RED BLOOD CELL COUNT 4.45 x10^6/uL (4.5-6.0); WHITE BLOOD CELL COUNT,WBC 7.6 x10^3/uL (4.0-10.0)
[2023-05-23 07:26] LABS: A/G RATIO 1.07; ALBUMIN 3.2 g/dL (3.4-5.0); BILIRUBIN TOTAL 0.6 mg/dL (0.2-1.0); CALCIUM 8.7 mg/dL (8.5-10.1); EST CRCL DRUG DOSING (CG) 81.06 mL/min; PROTEIN TOTAL,TP 6.2 g/dL (6.4-8.2)
[2023-05-23] MEDS: metFORMIN 500 MG Tab PO SCH ×2 (08:40→18:17)
[2023-05-23] MEDS: Ferrous Sulfate 325 MG Tab PO SCH (08:40)
[2023-05-23] MEDS: Tamsulosin 0.4 MG Cap.ER PO SCH (08:40)
[2023-05-23] MEDS: Cyanocobalamin (Vitamin B12) 250 MCG Tab PO SCH (08:40)
[2023-05-23] MEDS: Baclofen 10 MG Tab PO SCH ×2 (08:40→20:59)
[2023-05-23] MEDS: Lisinopril 20 MG Tab PO SCH (08:40)
[2023-05-23] MEDS: Potassium Chloride 10 MEQ Tab.ER PO SCH (08:40)
[2023-05-23] MEDS: Omeprazole 20 MG Cap.CR PO SCH (08:40)
[2023-05-23] MEDS: Clopidogrel 75 MG Tab PO SCH (08:40)
[2023-05-23] MEDS: Multivitamin Tab PO SCH ×2 (08:40→21:00)
[2023-05-23] MEDS: Magnesium Oxide 400 MG Tab PO SCH (08:41)
[2023-05-23] MEDS: Finasteride 5 MG Tab PO SCH (08:41)
[2023-05-23] MEDS: Metoprolol Tartrate 50 MG Tab PO SCH ×2 (08:41→21:00)
[2023-05-23] MEDS: Gabapentin 300 MG Cap PO SCH ×2 (08:41→14:45)
[2023-05-23] MEDS: Aspirin 81 MG Tab.EC PO SCH (08:41)
[2023-05-23] MEDS: Isosorbide Mononitrate 60 MG Tab.ER PO SCH (08:41)
[2023-05-23] MEDS: Insulin Lispro 100 Units/ML 3 ML Vial SUBCUT SCH ×3 (08:45→18:17)
[2023-05-23] MEDS: atorvaSTATin 10 MG Tab PO SCH (21:00)
[2023-05-23] MEDS: rOPINIRole 0.5 MG Tab PO SCH (21:00)
[2023-05-23] MEDS: Gabapentin 400 MG Cap PO SCH (21:00)
[2023-05-23] MEDS: Primidone 50 MG Tab PO SCH (21:00)
[2023-05-23] MEDS: Nortriptyline 25 MG Cap PO SCH (21:00)
[2023-05-23] MEDS: Insulin Glarg,Human.Rec.Analog 100 Unit/ML 10 ML Vial SUBCUT SCH (21:01)
[2023-05-24] MEDS: Tamsulosin 0.4 MG Cap.ER PO SCH (08:07)
[2023-05-24] MEDS: Clopidogrel 75 MG Tab PO SCH (08:07)
[2023-05-24] MEDS: Magnesium Oxide 400 MG Tab PO SCH (08:08)
[2023-05-24] MEDS: Gabapentin 300 MG Cap PO SCH ×2 (08:08→14:28)
[2023-05-24] MEDS: Ferrous Sulfate 325 MG Tab PO SCH (08:08)
[2023-05-24] MEDS: Finasteride 5 MG Tab PO SCH (08:08)
[2023-05-24] MEDS: Aspirin 81 MG Tab.EC PO SCH (08:08)
[2023-05-24] MEDS: Potassium Chloride 10 MEQ Tab.ER PO SCH (08:08)
[2023-05-24] MEDS: Isosorbide Mononitrate 60 MG Tab.ER PO SCH (08:08)
[2023-05-24] MEDS: Omeprazole 20 MG Cap.CR PO SCH (08:08)
[2023-05-24] MEDS: Cyanocobalamin (Vitamin B12) 250 MCG Tab PO SCH (08:08)
[2023-05-24] MEDS: metFORMIN 500 MG Tab PO SCH ×2 (08:08→19:34)
[2023-05-24] MEDS: Baclofen 10 MG Tab PO SCH ×2 (08:08→21:16)
[2023-05-24] MEDS: Multivitamin Tab PO SCH ×2 (08:08→21:16)
[2023-05-24] MEDS: Metoprolol Tartrate 50 MG Tab PO SCH ×2 (08:09→21:19)
[2023-05-24] MEDS: Lisinopril 20 MG Tab PO SCH (08:09)
[2023-05-24] MEDS: Insulin Lispro 100 Units/ML 3 ML Vial SUBCUT SCH ×3 (08:15→20:14)
[2023-05-24] MEDS: Gabapentin 400 MG Cap PO SCH (21:12)
[2023-05-24] MEDS: Primidone 50 MG Tab PO SCH (21:13)
[2023-05-24] MEDS: Nortriptyline 25 MG Cap PO SCH (21:15)
[2023-05-24] MEDS: atorvaSTATin 10 MG Tab PO SCH (21:15)
[2023-05-24] MEDS: rOPINIRole 0.5 MG Tab PO SCH (21:16)
[2023-05-24] MEDS: Insulin Glarg,Human.Rec.Analog 100 Unit/ML 10 ML Vial SUBCUT SCH (21:19)
[2023-05-25] MEDS: Isosorbide Mononitrate 60 MG Tab.ER PO SCH (08:08)
[2023-05-25] MEDS: Magnesium Oxide 400 MG Tab PO SCH (08:08)
[2023-05-25] MEDS: Multivitamin Tab PO SCH ×2 (08:08→20:59)
[2023-05-25] MEDS: metFORMIN 500 MG Tab PO SCH ×2 (08:09→17:51)
[2023-05-25] MEDS: Gabapentin 300 MG Cap PO SCH ×2 (08:09→14:44)
[2023-05-25] MEDS: Potassium Chloride 10 MEQ Tab.ER PO SCH (08:10)
[2023-05-25] MEDS: Aspirin 81 MG Tab.EC PO SCH (08:11)
[2023-05-25] MEDS: Omeprazole 20 MG Cap.CR PO SCH (08:11)
[2023-05-25] MEDS: Cyanocobalamin (Vitamin B12) 250 MCG Tab PO SCH (08:12)
[2023-05-25] MEDS: Tamsulosin 0.4 MG Cap.ER PO SCH (08:13)
[2023-05-25] MEDS: Ferrous Sulfate 325 MG Tab PO SCH (08:13)
[2023-05-25] MEDS: Baclofen 10 MG Tab PO SCH ×2 (08:13→21:00)
[2023-05-25] MEDS: Finasteride 5 MG Tab PO SCH (08:14)
[2023-05-25] MEDS: Clopidogrel 75 MG Tab PO SCH (08:15)
[2023-05-25] MEDS: Lisinopril 20 MG Tab PO SCH (08:15)
[2023-05-25] MEDS: Metoprolol Tartrate 50 MG Tab PO SCH ×2 (08:16→21:04)
[2023-05-25] MEDS: Insulin Lispro 100 Units/ML 3 ML Vial SUBCUT SCH ×3 (08:18→17:52)
[2023-05-25] MEDS: Insulin Glarg,Human.Rec.Analog 100 Unit/ML 10 ML Vial SUBCUT SCH (20:58)
[2023-05-25] MEDS: atorvaSTATin 10 MG Tab PO SCH (20:59)
[2023-05-25] MEDS: Primidone 50 MG Tab PO SCH (20:59)
[2023-05-25] MEDS: Nortriptyline 25 MG Cap PO SCH (20:59)
[2023-05-25] MEDS: rOPINIRole 0.5 MG Tab PO SCH (20:59)
[2023-05-25] MEDS: Gabapentin 400 MG Cap PO SCH (20:59)
[2023-05-26] MEDS: Baclofen 10 MG Tab PO SCH ×2 (08:27→20:48)
[2023-05-26] MEDS: metFORMIN 500 MG Tab PO SCH ×2 (08:27→19:36)
[2023-05-26] MEDS: Ferrous Sulfate 325 MG Tab PO SCH (08:28)
[2023-05-26] MEDS: Aspirin 81 MG Tab.EC PO SCH (08:29)
[2023-05-26] MEDS: Cyanocobalamin (Vitamin B12) 250 MCG Tab PO SCH (08:29)
[2023-05-26] MEDS: Tamsulosin 0.4 MG Cap.ER PO SCH (08:29)
[2023-05-26] MEDS: Potassium Chloride 10 MEQ Tab.ER PO SCH (08:29)
[2023-05-26] MEDS: Magnesium Oxide 400 MG Tab PO SCH (08:29)
[2023-05-26] MEDS: Finasteride 5 MG Tab PO SCH (08:30)
[2023-05-26] MEDS: Lisinopril 20 MG Tab PO SCH (08:30)
[2023-05-26] MEDS: Metoprolol Tartrate 50 MG Tab PO SCH ×2 (08:30→20:47)
[2023-05-26] MEDS: Multivitamin Tab PO SCH ×2 (08:31→20:47)
[2023-05-26] MEDS: Clopidogrel 75 MG Tab PO SCH (08:31)
[2023-05-26] MEDS: Gabapentin 300 MG Cap PO SCH ×2 (08:35→14:36)
[2023-05-26] MEDS: Omeprazole 20 MG Cap.CR PO SCH (08:35)
[2023-05-26] MEDS: Insulin Lispro 100 Units/ML 3 ML Vial SUBCUT SCH ×3 (08:36→18:27)
[2023-05-26] MEDS: Isosorbide Mononitrate 60 MG Tab.ER PO SCH (12:06)
[2023-05-26] MEDS: Nortriptyline 25 MG Cap PO SCH (20:47)
[2023-05-26] MEDS: Primidone 50 MG Tab PO SCH (20:47)
[2023-05-26] MEDS: Gabapentin 400 MG Cap PO SCH (20:47)
[2023-05-26] MEDS: rOPINIRole 0.5 MG Tab PO SCH (20:48)
[2023-05-26] MEDS: atorvaSTATin 10 MG Tab PO SCH (20:48)
[2023-05-26] MEDS: Insulin Glarg,Human.Rec.Analog 100 Unit/ML 10 ML Vial SUBCUT SCH (20:48)
[2023-05-27] MEDS: Gabapentin 300 MG Cap PO SCH (08:04)
[2023-05-27] MEDS: Insulin Lispro 100 Units/ML 3 ML Vial SUBCUT SCH (08:04)
[2023-05-27] MEDS: Baclofen 10 MG Tab PO SCH (08:05)
[2023-05-27] MEDS: Aspirin 81 MG Tab.EC PO SCH (08:05)
[2023-05-27] MEDS: Tamsulosin 0.4 MG Cap.ER PO SCH (08:05)
[2023-05-27] MEDS: Cyanocobalamin (Vitamin B12) 250 MCG Tab PO SCH (08:05)
[2023-05-27] MEDS: Potassium Chloride 10 MEQ Tab.ER PO SCH (08:05)
[2023-05-27] MEDS: metFORMIN 500 MG Tab PO SCH (08:06)
[2023-05-27] MEDS: Metoprolol Tartrate 50 MG Tab PO SCH (08:06)
[2023-05-27] MEDS: Multivitamin Tab PO SCH (08:06)
[2023-05-27] MEDS: Ferrous Sulfate 325 MG Tab PO SCH (08:07)
[2023-05-27] MEDS: Lisinopril 20 MG Tab PO SCH (08:07)
[2023-05-27] MEDS: Clopidogrel 75 MG Tab PO SCH (08:07)
[2023-05-27] MEDS: Omeprazole 20 MG Cap.CR PO SCH (08:07)
[2023-05-27] MEDS: Magnesium Oxide 400 MG Tab PO SCH (08:07)
[2023-05-27] MEDS: Finasteride 5 MG Tab PO SCH (08:07)
[2023-05-27] MEDS: Isosorbide Mononitrate 60 MG Tab.ER PO SCH (08:08)
[2023-05-27 08:09] VITALS: BP 117/68
[2023-05-27 09:22] VITALS: PULSE 97
== END 2023-05-27 11:00 | disposition home or self-care (01) | DRG 947 ==
LOC: VM.MS 05-09 14:49
PROVIDERS: ADMIT Internal Medicine; ATTEND Internal Medicine
DX: R53.1 Weakness (principal); A92.31 West Nile virus infection with encephalitis; I50.32 Chronic diastolic (congestive) heart failure; E44.1 Mild protein-calorie malnutrition; R53.83 Other fatigue; R19.7 Diarrhea, unspecified; I25.10 Atherosclerotic heart disease of native coronary artery without angina pectoris; G89.29 Other chronic pain; Z20.822 Contact with and (suspected) exposure to COVID-19; M54.41 Lumbago with sciatica, right side; M54.42 Lumbago with sciatica, left side; I11.0 Hypertensive heart disease with heart failure; J45.30 Mild persistent asthma, uncomplicated; E66.9 Obesity, unspecified; G47.33 Obstructive sleep apnea (adult) (pediatric); E11.40 Type 2 diabetes mellitus with diabetic neuropathy, unspecified; N40.0 Benign prostatic hyperplasia without lower urinary tract symptoms; Z96.698 Presence of other orthopedic joint implants; E16.2 Hypoglycemia, unspecified; R25.1 Tremor, unspecified; R91.8 Other nonspecific abnormal finding of lung field; G31.84 Mild cognitive impairment of uncertain or unknown etiology; Z79.4 Long term (current) use of insulin; Z91.048 Other nonmedicinal substance allergy status; Z79.899 Other long term (current) drug therapy; Z79.84 Long term (current) use of oral hypoglycemic drugs; Z79.82 Long term (current) use of aspirin; Z95.1 Presence of aortocoronary bypass graft; Z95.5 Presence of coronary angioplasty implant and graft; Z98.84 Bariatric surgery status; Z87.440 Personal history of urinary (tract) infections; Z85.53 Personal history of malignant neoplasm of renal pelvis; Z90.49 Acquired absence of other specified parts of digestive tract; Z98.890 Other specified postprocedural states; Z68.32 Body mass index [BMI] 32.0-32.9, adult
CPT/HCPCS: 36415; 80048; 80053; 80069; 80076; 82947; 83735; 85025; 95851-GO; 97110-GP; 97112-GP; 97116-GP; 97161-GP; 97165-GO; 97530-GO; 97535-GO; A9270-GY; J1815-GY; U0002

== ENCOUNTER 2024-03-08 07:13 | Day surgery (SDC) | payer MEDICARE, BC ==
[~2024-03-08 07:13] MED LIST: Lactated Ringers 1,000 ML IV SCH
[2024-03-08] MEDS: Lactated Ringers 1,000 ML IV SCH (07:38)
[2024-03-08] MEDS ORDERED: fentaNYL 100 MCG/2 ML SDV ONE (08:16)
[2024-03-08] MEDS ORDERED: Propofol 200 MG/20 ML SDV ONE ×2 (08:16→09:42)
[2024-03-08 10:49] VITALS: BP 129/81; PULSE 79
== END 2024-03-08 11:23 | disposition home or self-care (01) ==
LOC: VM.SDS 07:13
PROVIDERS: ATTEND Family Medicine
DX: Z12.11 Encounter for screening for malignant neoplasm of colon (principal); D12.0 Benign neoplasm of cecum; D12.6 Benign neoplasm of colon, unspecified; E11.9 Type 2 diabetes mellitus without complications; J45.909 Unspecified asthma, uncomplicated; I11.0 Hypertensive heart disease with heart failure; I50.9 Heart failure, unspecified; I25.10 Atherosclerotic heart disease of native coronary artery without angina pectoris; Z80.0 Family history of malignant neoplasm of digestive organs; Z86.010 Personal history of colon polyps
CPT/HCPCS: 00811; 82947; 88305; J2704; J3010; J7120